=== PATIENT | male | born 1970 | race Two or more races ===

== ENCOUNTER → 2018-06-12 | Emergency (ER) | payer BC, MEDICAID, OTHER ==
[~2018-06-12] VITALS: Ht 167.6 cm; Wt 81.6 kg
[2018-06-12 16:04] VITALS: BP 125/82
== END | disposition home or self-care (01) ==
LOC: ER 15:55
DX: F41.9 Anxiety disorder, unspecified (principal); E11.9 Type 2 diabetes mellitus without complications; I10 Essential (primary) hypertension
CPT/HCPCS: 71045; 93005